=== PATIENT | female | born 1995 | race Caucasian/White ===

== ENCOUNTER → 2021-05-27 14:05 | Outpatient (CLI) | payer SELFPAY | PROVIDERS: PCP Family Medicine; Visit Provider Obstetrics & Gynecology | DX: O20.0 Threatened abortion (principal); Z3A.00 Weeks of gestation of pregnancy not specified ==

== ENCOUNTER → 2021-05-29 14:09 | Outpatient (CLI) | payer SELFPAY ==
[2021-05-27 17:07] LABS: hCG Titer Quant., Serum 11868 mIU/mL (1-3)
[2021-05-29 16:15] LABS: hCG Titer Quant., Serum 19084 mIU/mL (1-3)
== END ==
PROVIDERS: PCP Family Medicine; Visit Provider Obstetrics & Gynecology
DX: O20.0 Threatened abortion (principal); Z3A.00 Weeks of gestation of pregnancy not specified
CPT/HCPCS: 36415; 84702

== ENCOUNTER → 2021-07-15 10:30 | Outpatient (CLI) | payer OTHER, SELFPAY ==
[2021-07-15 11:22] LABS: Absolute Lymphocyte Count 2.02 X10^3/uL (0.83-4.51); Absolute Neutrophil Count 5.4 X10^3/uL (2.0-7.7); Basophil# 0.03 X10^3/uL; Basophil% 0.4 % (0-1); Eosinophil# 0.06 X10^3/uL; Eosinophils% 0.7 % (0-5); Hematocrit 39.8 % (37-47); Hemoglobin 13.1 g/dL (12.0-15.0); Lymphocyte # 2.02 X10^3/ul (0.83-4.51); Lymphocyte % 24.5 % (19-41); Mean Corp Hgb Conc 32.9 g/dL (32-36); Mean Corpuscular Hgb 30.7 pg (27.0-32.0); Mean Corpuscular Volume 93.2 fL (81-99); Mean Platelet Vol. 9.3 fl (6.2-12.0); Monocyte# 0.68 X10^3/uL; Monocyte% 8.2 % (0-10); NRBC Flagged by Analyzer 0 % (0-5); Neutrophil # 5.44 X10^3/uL (2.7-7.7); Neutrophil % 65.8 % (47-70); Platelet Count 188 K/mm3 (150-450); RBC Distribution Width CV 12.9 % (11.6-14.6); RBC Distribution Width SD 43.8 fl (35.1-43.9); Red Blood Count 4.27 M/mm3 (4.2-5.4); White Blood Count 8.3 K/mm3 (4.4-11.0)
[2021-07-15 11:40] LABS: Color, Urine Yellow (Yellow); Glucose, Dipstick Normal (Normal); Ketone-Dipstick Negative (Negative); Leukocyte Esterase-Dipstick 500 /ul (Negative); Nitrite-Dipstick Negative (Negative); Occult Blood-Urine 150 /ul (Negative); Protein-Dipstick Negative (Negative); Specific Gravity, Urine 1.015 (1.002-1.030); Thyroid Stim Hormone (TSH) 1.13 uIU/mL (0.358-3.74); Urine Bilirubin Dipstick Negative (Negative); Urine Clarity Clear (Clear); Urine Urobilinogen Normal (Normal)
[2021-07-15 12:10] LABS: HIV - WCH Non-Reactive (Nonreactive); Hepatitis B Surface Antigen Non-Reactive (Nonreactive); Hepatitis C Antibody Non-Reactive (Nonreactive); Rubella IgG Reactive (Nonreactive); Syphilis Antibodies Non-reactive
[2021-07-16 22:07] LABS: Chlamydia By Nucleic Acid AMP Negative (Negative)
[2021-07-17 15:53] LABS: Gonococcus By Nucleic Acid AMP Negative (Negative)
[2021-07-18 15:35] LABS: HPV Reflexed? NOT INDICATED
== END ==
PROVIDERS: PCP Family Medicine; Visit Provider Obstetrics & Gynecology
DX: Z34.81 Encounter for supervision of other normal pregnancy, first trimester (principal); Z12.4 Encounter for screening for malignant neoplasm of cervix; Z11.3 Encounter for screening for infections with a predominantly sexual mode of transmission
CPT/HCPCS: 36415; 81002; 84443; 85025; 86703; 86762; 86780; 86803; 87086; 87088; 87340; 87491; 87591; 88175; G0145

== ENCOUNTER 2021-11-05 10:08 | Outpatient (CLI) | payer OTHER, SELFPAY ==
[2021-11-05 11:49] LABS: Hematocrit 35.2 % (37-47); Mean Corp Hgb Conc 34.1 g/dL (32-36); Mean Corpuscular Hgb 32.9 pg (27.0-32.0); Mean Corpuscular Volume 96.4 fL (81-99); Mean Platelet Vol. 9.4 fl (6.2-12.0); Platelet Count 177 K/mm3 (150-450); RBC Distribution Width CV 13.2 % (11.6-14.6); Red Blood Count 3.65 M/mm3 (4.2-5.4); White Blood Count 11.4 K/mm3 (4.4-11.0)
[2021-11-05 11:53] LABS: Glucose Challenge Gest 1H 50g 72 mg/dL (70-140)
== END 2021-11-05 23:59 | disposition home or self-care (01) ==
PROVIDERS: PCP Family Medicine; Visit Provider Obstetrics & Gynecology
DX: Z34.83 Encounter for supervision of other normal pregnancy, third trimester (principal)
CPT/HCPCS: 36415; 82950; 85027

== ENCOUNTER 2021-12-31 15:25 | Outpatient (CLI) | payer OTHER, SELFPAY | END 2021-12-31 23:59 | disposition home or self-care (01) | LOC: LABSPEC 15:27 | PROVIDERS: PCP Family Medicine; Visit Provider Obstetrics & Gynecology | DX: Z36.85 Encounter for antenatal screening for Streptococcus B (principal) | CPT/HCPCS: 87081 ==

== ENCOUNTER 2022-01-20 11:25 | Inpatient (IN) | payer SELFPAY, OTHER ==
[2022-01-20] VITALS (40 sets, daily range): BP systolic 105–121; BP diastolic 57–74; PULSE 85–111; TEMP 36.2–37.3; O2SAT 95–100; BMI 26.6
[2022-01-20] MEDS: Lactated Ringers 1,000 ML 200 ML IV (12:57)
[2022-01-20 13:03] LABS: Absolute Lymphocyte Count 1.36 X10^3/uL (0.83-4.51); Basophil# 0.03 X10^3/uL; Basophil% 0.2 % (0-1); Eosinophil# 0.02 X10^3/uL; Eosinophils% 0.2 % (0-5); Hematocrit 41.2 % (37-47); Hemoglobin 14.1 g/dL (12.0-15.0); Lymphocyte # 1.36 X10^3/ul (0.83-4.51); Lymphocyte % 10.3 % (19-41); Mean Corp Hgb Conc 34.2 g/dL (32-36); Mean Corpuscular Volume 96.5 fL (81-99); Mean Platelet Vol. 9.7 fl (6.2-12.0); Monocyte# 0.67 X10^3/uL; Monocyte% 5.1 % (0-10); NRBC Flagged by Analyzer 0 % (0-5); Neutrophil # 11.02 X10^3/uL (2.7-7.7); Neutrophil % 83.5 % (47-70); Platelet Count 165 K/mm3 (150-450); RBC Distribution Width CV 13.1 % (11.6-14.6); RBC Distribution Width SD 46.5 fl (35.1-43.9); Red Blood Count 4.27 M/mm3 (4.2-5.4); White Blood Count 13.2 K/mm3 (4.4-11.0)
--- NOTE | 2022-01-20 17:50 | PCM.HP.OB ---
HPI - General General Date of Admission: 01/20/22 HPI Narrative HAROON GALINDO, is a 26 F who presents in active labor. She was seen in the office and sent to labor and delivery for cervical exam 5cm/80/-2. Maternal Data Information BRENDAN Calculator Estimated Delivery Date Method Current WG Current Estimate 01/28/22 LMP (Certain) 38w 6d Other Estimates 01/27/22 Ultrasound #1 39w 0d PFSH PFSH Medical History (Updated 01/20/22 @ 17:[address] Kizzy Staley MD) Herpes zoster Late care affecting in first trimester Home Medications vit-iron fum-folic ac [ Fa] 1 tab PO DAILY 01/20/22 [History Last Taken Unknown] Allergy/AdvReac Type Severity Reaction Status Date / Time No Known Allergies Allergy Verified 02/13/17 21:46 Surgical History (Updated 01/20/22 @ 17:[address] Kizzy Staley MD) History of surgical procedure on mouth Social History Smoking Status: Never smoker History 1 Elective abortions Hx Para 0 Spontaneous abortions Hx # Term Pregnancies Ectopic pregnancies Hx # Pregnancies Multiple births # of living children NST FHR Rate Baby A Baseline: 145 Variability:: Moderate Accelerations:: 15 x 15 Decelerations:: None NST Reactive:: Yes FHR Category:: Category I Uterine Activity:: 10/23 Vital Signs Vital Signs Vital Signs: 01/20/22 12:11 01/20/22 12:12 01/20/22 13:24 Temperature 97.8 F Temperature Source Temporal Pulse Rate 103 H 85 Blood Pressure 114/68 121/74 H BP Systolic 114 121 BP Diastolic 68 74 Pulse Ox 96 01/20/22 14:35 01/20/22 14:45 01/20/22 15:39 Temperature 98.4 F Temperature Source Temporal Pulse Rate 98 98 111 H Blood Pressure 119/71 119/71 115/72 BP Systolic 119 119 115 BP Diastolic 71 71 72 Pulse Ox 98 01/20/22 15:40 01/20/22 16:31 01/20/22 17:24 Temperature 98.8 F 99.2 F H 98.2 F Temperature Source Temporal Temporal Temporal Pulse Rate 106 H 91 Blood Pressure 105/58 L 111/66 BP Systolic 105 111 BP Diastolic 58 66 Pulse Ox 98 97 97 01/20/22 17:25 Temperature Temperature Source Pulse Rate 96 Blood Pressure BP Systolic BP Diastolic Pulse Ox 95 Weight Weight: 74.9 kg Body Mass Index (BMI) 26.6 Physical Exam Const alert, oriented x3 and no apparent distress HEENT normocephalic Resp normal respiratory effort, normal air movement and clear to auscultation bilaterally Cardio regular rate and regular rhythm GI normal to inspection, nondistended, normoactive bowel sounds, soft to palpation, non-tender and non-distended Inspection: gravid Narrative: /-1, soft, BBOW Labs Labs Labs: Blood Type A POSITIVE Antibody Screen NEGATIVE Hct 41.2 % (37-47) Hgb 14.1 g/dL (12.0-15.0) Syphilis Total Ab Non-reactive Rubella IgG Antibody Reactive (Nonreactive) Hep Bs Antigen Non-Reactive (Nonreactive) Chlamydia DNA (OPAL) Negative (Negative) Neisseria gonorrhoeae DNA (OPAL) Negative (Negative) HIV 1&2 Antibody Non-Reactive (Nonreactive) Glucose 1 Hr 50 gm 72 mg/dL (70-140) Assessment & Plan (1) 38 weeks gestation of : PLAN: Active labor Recent exam unchanged x 2. Amniotomy performed with clear fluid Intermittent auscultation
[2022-01-20] MEDS: Dextrose 5%-Lactated Ringers 1,000 ML 200 ML IV (19:09)
--- NOTE | 2022-01-20 20:26 | PCM.PN.OB ---
Subjective Subjective Reports pressures in her bottom with urge to push. Objective Data Objective Data Vital Signs: Vital Signs Temp Pulse BP Pulse Ox 98.2 F 90 105/61 99 01/20/22 17:24 01/20/22 19:31 01/20/22 19:31 01/20/22 19:30 Weight: 74.9 kg Body Mass Index (BMI) 26.6 Intake & Output: Intake and Output for Last 24 Hours 01/18/22 01/19/22 01/20/22 23:59 23:59 23:59 Intake Total 853.33 / 853.33 Balance 853.33 / 853.33 Lab / Micro Data Result Diagrams: 01/20/22 12:30 Labs: Laboratory Results - last 24 hr 01/20/22 12:30: WBC 13.2 H, RBC 4.27, Hgb 14.1, Hct 41.2, MCV 96.5, MCH 33.0 H, MCHC 34.2, RDW Std Deviation 46.5 H, RDW Coeff of Alexsandra 13.1, Plt Count 165, MPV 9.7, Immature Gran % (Auto) 0.700, Neut % (Auto) 83.5 H, Lymph % (Auto) 10.3 L, [place] % (Auto) 5.1, Eos % (Auto) 0.2, Baso % (Auto) 0.2, Absolute Neuts (auto) 11.0 H, Absolute Lymphs (auto) 1.36, Nucleated RBC % 0 01/20/22 12:30: Blood Type A POSITIVE, Antibody Screen NEGATIVE Micro: Microbiology 01/20/22 12:45 Nasal Secretion SARS-CoV-2 Antigen (Rapid) - Final Physical Exam Narrative GEN - NAD, AAO x 3 FHR 140, moderate variability, + accelerations, no decelerations TOCO 5/10 min SVE anterior lip, 0 station, LOP Assessment & Plan (1) 38 weeks gestation of :
[2022-01-20] MEDS: Oxytocin 30 units/NS 500 ml 30 UNITS/500 ML IV.SOLN 334 UNITS IV (21:49)
--- NOTE | 2022-01-20 22:46 | EX.PCM.OBRPT ---
Assessment & Plan (1) 38 weeks gestation of : (2) (spontaneous vaginal delivery): Maternal Data Information BRENDAN Calculator Estimated Delivery Date Method Current WG Current Estimate 01/28/22 LMP (Certain) 38w 6d Other Estimates 01/27/22 Ultrasound #1 39w 0d Vaginal Delivery Maternal Presentation Maternal Presentation: Active Labor Operative Information Date of Procedure: 01/20/22 Pre-Operative Diagnosis: 1. 38 6/7 weeks gestation 2. Labor Post-Operative Diagnosis: 1. 38 6/7 weeks gestation 2. Labor 3. Third degree perineal laceration Surgery / Procedure Performed: Spontaneous Vaginal Delivery Type of Anesthesia: None Estimated Blood Loss: 400 ml Time of Delivery: 21:42 Findings Description of Procedure: Patient was FD/+ 3 on my arrival. She pushed over approximately 20 minutes to deliver a vigorous female infant. The was handed to nursery personnel and mouth and nares bulb suctioned, then placed on the maternal abdomen. The cord was doubly clamped and cut. The placenta delivered spontaneously and appeared intact on inspection. A third degree perineal laceration was repaired with 2-0 chromic using a side to side clockface pattern at the external anal sphincter and the remaining second degree laceration was repaired with 3-0 Vicryl Rapide with good hemostasis. The fundus was firm at 1 FW below the umbilicus. Sponge and needle counts were correct x 2. Presentation: Vertex Amniotic Fluid Description: Clear Placenta Disposition: [facility] Cord Vessel Description: 3 Vessels Cord Entanglement: None Infant A Gender: Female (1 minute): 8 (5 minute): 9 Delayed Cord Clamping: Yes Post Vaginal Delivery Medications Given After Delivery: IV Pitocin Episiotomy Description: None Laceration: Midline, Perineal Extension/lac, Vaginal Extension/lac and 3rd degree Complication Complications: None
[2022-01-20] MEDS: Ibuprofen 600 MG Tablet PO (23:11)
[2022-01-21] VITALS (8 sets, daily range): BP systolic 101–127; BP diastolic 56–63; PULSE 98–112; RESP 15–18; TEMP 36.6–36.8; O2SAT 96–98
[2022-01-21] MEDS: 0.9% Saline Lock 10 ML Syringe IV (00:32)
--- NOTE | 2022-01-21 06:00 | NURSING ---
small large marble sized clot expelled when pt up to bathroom at this time
--- NOTE | 2022-01-21 07:20 | NURSING ---
report given to Lea Gonzáles RN who is assuming care of pt at this time
--- NOTE | 2022-01-21 08:57 | PN.OBGYN_ITS ---
Subjective Subjective Feels well. Had discomfort with urination, otherwise no voiding difficulties. She has been OOB, ambulating without difficulty. Denies heavy lochia. Pain is minimal. She is . Objective Data Objective Data Vital Signs: Vital Signs Temp Pulse Resp BP Pulse Ox 98.3 F 101 H 15 104/57 L 96 01/21/22 08:36 01/21/22 08:39 01/21/22 08:36 01/21/22 08:39 01/21/22 08:36 Oxygen Delivery Method Room Air Weight: 74.9 kg Body Mass Index (BMI) 26.6 Intake & Output: Intake and Output for Last 24 Hours 01/19/22 01/20/22 01/21/22 23:59 23:59 23:59 Intake Total 1530.33 / 1530.33 333 / 333 Output Total 800 / 800 Balance 1530.33 / 1530.33 -467 / -467 Lab / Micro Data Result Diagrams: 01/20/22 12:30 Labs: Laboratory Results - last 24 hr 01/20/22 12:30: WBC 13.2 H, RBC 4.27, Hgb 14.1, Hct 41.2, MCV 96.5, MCH 33.0 H, MCHC 34.2, RDW Std Deviation 46.5 H, RDW Coeff of Alexsandra 13.1, Plt Count 165, MPV 9.7, Immature Gran % (Auto) 0.700, Neut % (Auto) 83.5 H, Lymph % (Auto) 10.3 L, [place] % (Auto) 5.1, Eos % (Auto) 0.2, Baso % (Auto) 0.2, Absolute Neuts (auto) 11.0 H, Absolute Lymphs (auto) 1.36, Nucleated RBC % 0 01/20/22 12:30: Blood Type A POSITIVE, Antibody Screen NEGATIVE Micro: Microbiology 01/20/22 12:45 Nasal Secretion SARS-CoV-2 Antigen (Rapid) - Final Physical Exam Const alert, oriented x3 and no apparent distress Resp normal respiratory effort and normal air movement Cardio regular rate, regular rhythm, S1 normal heart sound and S2 normal heart sound Narrative: lochia moderate Uterus Palpation: uterus fundus firm and other OB fundus nontender Extremity no calf tenderness Neuro oriented x3 Assessment & Plan (1) (spontaneous vaginal delivery): PLAN: PPD#1 s/p A positive Routine care Plan for d/c home tomorrow (2) 38 weeks gestation of :
[2022-01-21] MEDS: Ibuprofen 600 MG Tablet PO ×2 (08:58→20:14)
[2022-01-21] MEDS: Senna/Docusate Sodium 1 Tablet PO (15:22)
[2022-01-21] MEDS: Acetaminophen 500 MG Tablet 1000 MG PO (15:22)
[2022-01-22 01:27] VITALS: BP 102/63; PULSE 92; PULSE 93; RESP 16; O2SAT 97
--- NOTE | 2022-01-22 07:25 | NURSING ---
report given to Anne Marie Velez RN who is assuming care of pt at this time
--- NOTE | 2022-01-22 08:12 | PCM.DC.BLA ---
Discharge Summary Date of Admission: 01/20/22 Date of Discharge: 01/22/22 Summary: Patient arrived on 01/20/2022 in active labor. Subsequently vaginal delivery 01/20/2022. Routine care. Discharge home on 01/22/2022 Meaningful Use Info Meaningful Use Diagnoses (Choose all that apply): None applicable Discharge Plan Admission Admit Date/Time: 01/20/22 11:25 Primary Reason for Your Visit: Labor Attending Provider: Kizzy Fields Primary Care Provider: Ozzie Worthy Instructions Additional Instructions / Restrictions: Okay to shower. No tub baths for 2 weeks. Weightbearing as tolerated. Regular diet. No intercourse for 4 to 6 weeks. Call if chest pain, shortness of breath, nausea vomiting, right upper quadrant pain. Follow-up 2-week telehealth visit, 4 to 6 weeks Discharge Orders/Prescriptions Prescriptions: No Action Fa 60 mg iron-1 mg Tablet 1 tab PO DAILY RF: 0 Referrals / Follow Up: Ozzie Worthy DO [Primary Care Provider] - Disposition Discharge Orders: Discharge Patient (Routine); Ordered 01/22/22 Ordered By: Dr. Zachary Wang
--- NOTE | 2022-01-22 08:13 | PN.OBGYN_ITS ---
Subjective Subjective No overnight complaints Objective Data Objective Data Vital Signs: Vital Signs Temp Pulse Resp BP Pulse Ox 98.0 F 92 16 102/63 97 01/21/22 20:17 01/22/22 01:27 01/22/22 01:27 01/22/22 01:27 01/22/22 01:27 Oxygen Delivery Method Room Air Weight: 165 lb 2.02 oz Body Mass Index (BMI) 26.6 Intake & Output: Intake and Output for Last 24 Hours 01/20/22 01/21/22 01/22/22 23:59 23:59 23:59 Intake Total 1530.33 / 1530.33 333 / 333 Output Total 800 / 800 Balance 1530.33 / 1530.33 -467 / -467 Lab / Micro Data Result Diagrams: 01/20/22 12:30 Micro: Microbiology 01/20/22 12:45 Nasal Secretion SARS-CoV-2 Antigen (Rapid) - Final Physical Exam Const alert, oriented x3, no apparent distress, average body habitus, healthy appearing and well nourished HEENT normocephalic Head and Scalp: atraumatic Face and Sinus: normal facial exam Neck full ROM GI GI Narrative: Soft, nontender, uterus firm and below umbilicus Extremity normal to inspection, full ROM and no clubbing, cyanosis or edema Psych mental status grossly normal, affect normal, speech normal and activity/motor behavior normal Assessment & Plan (1) (spontaneous vaginal delivery): PLAN: day 2. Breast-feeding. Okay to discharge home today if okay with child and adolescent therapist
[2022-01-22 09:00] VITALS: BP 101/65; PULSE 90; RESP 16; TEMP 36.7
[2022-01-22 09:16] VITALS: BP 101/65; PULSE 90
[2022-01-22] MEDS: Ibuprofen 600 MG Tablet PO (09:17)
== END 2022-01-22 11:45 | disposition home or self-care (01) | DRG 768 ==
PROVIDERS: Admitting Provider Obstetrics & Gynecology; PCP Family Medicine; Visit Provider Obstetrics & Gynecology
DX: O70.20 Third degree perineal laceration during delivery, unspecified (principal); Z37.0 Single live birth; Z3A.38 38 weeks gestation of pregnancy
CPT/HCPCS: 59025; 59050; 85025; 86850; 86900; 86901; 87426; 99218; J7120; A4216; G0378

== ENCOUNTER 2023-05-17 14:31 | Emergency (ER) | payer OTHER, SELFPAY ==
[2023-05-17 14:34] VITALS: BP 121/87; PULSE 100; RESP 18; TEMP 36.2; O2SAT 99; BMI 20.7
--- NOTE | 2023-05-17 14:46 | CT_ITS ---
STUDY: CT ABDOMEN AND PELVIS WITH CONTRAST REASON FOR EXAM: Female, 27 years old. abd pain, fever -- IV PO Contrast RADIATION DOSAGE (If Supplied By Facility): CTDIvol = ( 18.99 ) mGy, DLP = ( 412.42 ) mGycm TECHNIQUE: Transaxial images were obtained from the dome of the diaphragm to the symphysis pubis with oral contrast. IV 100mL Isovue-370 was administered. Sagittal and coronal images were reconstructed. Individualized dose optimization techniques were used for this CT. COMPARISON: None. FINDINGS: The visualized lung bases are unremarkable. The visualized portions of the heart are within normal limits. Normal liver. Normal gallbladder and extrahepatic biliary system. Normal spleen. Normal pancreas. Normal bilateral adrenal glands. Normal right kidney. Normal left kidney. Normal visualized stomach. Normal small intestine. Normal colon. There is non-visualization of the appendix. Normal abdominal aorta. Normal inferior vena cava. Normal retroperitoneum. Normal urinary bladder. Normal abdominal wall. Normal osseous structures. CT/Abdomen/Pelvis WITH Contrast IMPRESSION: Normal enhanced CT of the abdomen and pelvis. Electronically Signed: Miguel Grider MD at 17:58 EDT ,
--- NOTE | 2023-05-17 14:47 | EDS_ITS ---
HPI History of Present Illness Chief Complaint: Abd Pain Informant: patient Onset/Context/Timing Onset: Yesterday Context: Gradual Onset Timing: Waxes and wanes Current Severity: Mild Maximum Severity: Moderate Narrative Narrative: Patient present secondary to abdominal pain. She states she had pain rated 6-8 overnight and a bandlike sensation across her lower abdomen. She developed low- grade fever up to 100.7. She states the pain is more located around her umbilicus today and is more mild. She has not run a fever during the day today. She has decreased output and has not had anything to eat. She has been drinking. She reports some abdominal pain when she urinates but no actual dysuria. She does report some cough and congestion that feels like it is moving down into her lungs. Her is recovering from flu. [facility] Medical History Herpes zoster Late care affecting in first trimester Home Medications vit with calcium-iron fum-folic acid 60 mg iron-1 mg tablet 1 tab PO DAILY 01/20/22 [History Last Taken Unknown] Allergy/AdvReac Type Severity Reaction Status Date / Time No Known Allergies Allergy Verified 05/17/23 14:34 Surgical History History of surgical procedure on mouth Social History Smoking Status: Never smoker ROS ROS ED Constitutional Constitutional ED: Reports fever(s); Denies chills Eyes Eyes: Denies change in vision or discharge from eye(s) ENT ENT ED: Reports other Details: Congestion ; Denies discharge from eye(s), rhinorrhea or sore throat Cardiovascular Cardiovascular: Denies chest pain or palpitations Respiratory/Chest Respiratory/Chest: Reports cough; Denies dyspnea Gastrointestinal Gastrointestinal: Reports abdominal pain; Denies diarrhea, nausea or vomiting Genitourinary Genitourinary ED: Denies dysuria Musculoskeletal Musculoskeletal: Denies back pain or extremity pain Integumentary Denies Abrasions or rash Neurologic Neurologic: Denies headache(s) or weakness Allergic/Immunologic Allergic/Immunologic ED: Denies lip swelling or urticaria EXAM Physical Exam Const Vital Signs: 05/17/23 14:34 Temperature 97.2 F L Temperature Source Temporal Pulse Rate 100 Respiratory Rate 18 Blood Pressure 121/87 H Blood Pressure Mean 98 Pulse Ox 99 Oxygen Delivery Method Room Air Positive well nourished and well developed General Appearance ED: well developed HEENT Reports normocephalic and head/scalp atraumatic Eyes PERRL and EOMs intact bilaterally Neck supple Chest Wall inspection of chest normal and palpation of chest normal Resp normal respiratory effort and clear to auscultation bilaterally Cardio regular rate and regular rhythm GI GI Narrative: Minimal periumbilical tenderness at this time. Hypoactive bowel sounds. No guarding or rebound. Palpation: soft Extremity normal to inspection Neuro oriented x3 and no sensory deficits noted Sensorium / Orientation: alert Motor Exam: strength 5/5 throughout Psych mental status grossly normal Skin no rashes or lesions noted MDM MDM MDM Narrative Medical decision making narrative: IV line established. Patient given IV fluids. Labwork obtained to evaluate for leukocytosis, anemia, and electrolyte derangement. Urinalysis obtained to evaluate for infection/hematuria. CT scan of the abdomen pelvis obtained with contrast to evaluate for possible appendicitis. Lab Data Attestation: I reviewed the patient's lab results. Labs: Laboratory Results - last 24 hr 05/17/23 05/17/23 14:55 15:25 WBC 7.1 RBC 4.37 Hgb 13.7 Hct 39.8 MCV 91.1 MCH 31.4 MCHC 34.4 RDW Std Deviation 40.6 RDW Coeff of Alexsandra 12.1 Plt Count 233 MPV 9.1 Immature Gran % (Auto) 0.300 Neut % (Auto) 59.6 Lymph % (Auto) 28.5 [place] % (Auto) 10.9 H Eos % (Auto) 0.4 Baso % (Auto) 0.3 Absolute Neuts (auto) 4.2 Absolute Lymphs (auto) 2.01 Nucleated RBC % 0 Sodium 136 Potassium 3.5 Chloride 103 Carbon Dioxide 28.0 Anion Gap 5 BUN 13 Creatinine 0.89 Estim Creat Clear Calc 88.89 Est GFR (MDRD) Af Amer 97 Est GFR (MDRD) Non-Af 80 BUN/Creatinine Ratio 14.6 Glucose 94 Calcium 8.9 Total Bilirubin 0.70 Direct Bilirubin 0.17 AST 13 L ALT 20 Alkaline Phosphatase 67 Total Protein 7.8 Albumin 3.6 Globulin 4.2 Lipase 27 Serum , Qual NEGATIVE Urine Color Yellow Urine Clarity Clear Urine pH 6.5 Ur Specific [place] 1.015 Urine Protein Negative Urine Glucose (UA) Normal Urine Ketones 15 H Urine Occult Blood Negative Urine Nitrite Negative Urine Bilirubin Negative Urine Urobilinogen Normal Ur Leukocyte Esterase 100 H Urine RBC 0 SEEN Urine WBC 0-5 SEEN Ur Squamous Epith Cells 0-5 SEEN Urine Bacteria 1+ Urine Mucus 0 SEEN Radiography Chest X-Ray - ED: 1 View, Read by ED Physician, Normal, Heart, Lungs and Mediastinum Diagnostic Testing: Clinical Impression(s) from Imaging Studies Abdomen/Pelvis CT 05/17/23 14:46 IMPRESSION: Normal enhanced CT of the abdomen and pelvis. Electronically Signed: Miguel Grider MD at 17:58 EDT Reading Location ID and State: [employer] [facility] [employer] , Service support , Chest X-Ray 05/17/23 15:32 IMPRESSION: Normal x-ray examination of the chest. Electronically Signed: Miguel Grider MD at 16:13 EDT Reading Location ID and State: [employer] [facility] [employer] , Service support , Treatment and Re-Evaluation :: CBC was normal white count 7.1 with normal differential. Chemistry studies are unremarkable. LFTs and lipase normal. test negative. Urinalysis reveals no overt sign of infection. Portable chest x-ray per my interpretation reveals no focal infiltrate. Radiology interpretation is reviewed and agrees. CT scan of the abdomen and pelvis is read by radiology as normal. Test results are discussed with the patient. Patient did asked that I look at a rash that she has had for the past 4 years. She has irritation and itching along the left perineum in her panty line. There appears to be an area of contact dermatitis. We discussed using hydrocortisone cream or using a panty liner wrapped around the edge of her underwear to prevent any contact with the elastic. I will also give her the phone number for dermatology for follow-up if this does not improve. Discharge Plan Triage Chief Complaint: Abd Pain ED Provider: Nissa Rosen Dx/Rx/DC Orders Clinical Impression: Abdominal pain Instructions: ED Abdominal Pain Unkn Cause Fem Prescriptions: No Action Fa 60 mg iron-1 mg Tablet 1 tab PO DAILY Primary Care Provider: Ozzie Worthy Referrals: Gregoria Saez MD [Non-Staff] - As Needed Ozzie Worthy DO [Primary Care Provider] - As Needed Disposition Disposition: Home, Self Care
[2023-05-17 15:17] LABS: Absolute Lymphocyte Count 2.01 X10^3/uL (0.83-4.51); Absolute Neutrophil Count 4.2 X10^3/uL (2.0-7.7); Basophil# 0.02 X10^3/uL; Basophil% 0.3 % (0-1); Eosinophil# 0.03 X10^3/uL; Eosinophils% 0.4 % (0-5); Hematocrit 39.8 % (37-47); Hemoglobin 13.7 g/dL (12.0-15.0); Lymphocyte # 2.01 X10^3/ul (0.83-4.51); Lymphocyte % 28.5 % (19-41); Mean Corp Hgb Conc 34.4 g/dL (32-36); Mean Corpuscular Hgb 31.4 pg (27.0-32.0); Mean Corpuscular Volume 91.1 fL (81-99); Mean Platelet Vol. 9.1 fl (6.2-12.0); Monocyte# 0.77 X10^3/uL; Monocyte% 10.9 % (0-10); NRBC Flagged by Analyzer 0 % (0-5); Neutrophil % 59.6 % (47-70); Platelet Count 233 K/mm3 (150-450); RBC Distribution Width CV 12.1 % (11.6-14.6); RBC Distribution Width SD 40.6 fl (35.1-43.9); Red Blood Count 4.37 M/mm3 (4.2-5.4); White Blood Count 7.1 K/mm3 (4.4-11.0)
[2023-05-17] MEDS: 0.9% Normal Saline 1,000 ML 150 ML IV (15:26)
--- NOTE | 2023-05-17 15:32 | RAD_ITS ---
STUDY: X-RAY CHEST REASON FOR EXAM: Female, 27 years old. cough TECHNIQUE: Single AP portable view of the chest. COMPARISON: None. FINDINGS: The lungs are clear and expanded. There is no demonstrated pleural abnormality. Normal size heart. Normal mediastinum and esteban. Normal visualized pulmonary arteries. Normal visualized aortic arch and descending thoracic aorta. Normal visualized thoracic spine. Normal visualized ribs, clavicles, and shoulders. There is no demonstrated abnormality of the visualized soft tissue structures of the upper abdomen. RAD/Chest 1 View (Portable) IMPRESSION: Normal x-ray examination of the chest. Electronically Signed: Miguel Grider MD at 16:13 EDT ,
[2023-05-17 15:33] LABS: Mucous, Urine 0 SEEN /hpf (<or=2+); Red Blood Cells-Urine 0 SEEN /hpf (0-5)
[2023-05-17 15:36] LABS: Internal QC Validated? YES +Cl - CLEAR BKGD; Pregnancy, Serum, hCG Quali. NEGATIVE Negative; Record Kit Lot#, Serum Preg. 667200
[2023-05-17 15:39] LABS: AST(SGOT) 13 U/L (15-37); Alanine Aminotransfer ALT/SGPT 20 U/L (13-56); Albumin, Serum 3.6 g/dL (3.2-5.0); Alkaline Phosphatase 67 U/L (45-117); Anion Gap 5 (5-15); BUN 13 mg/dL (7-18); BUN/Creat Ratio 14.6 RATIO (10-20); Bilirubin, Direct 0.17 mg/dL (0.00-0.30); Calcium,Total 8.9 mg/dL (8.5-10.1); Chloride 103 mmol/L (98-107); Creatinine, Serum 0.89 mg/dL (0.55-1.02); EST Glomerular Filtration Rate 80 mL/min (>60); Est Glom Filt Rate - Afr Amer 97 mL/min (>60); Estimated Creatinine Clearance 88.89 ml/min; Globulin 4.2 g/dL (2.2-4.2); Glucose 94 mg/dL (74-106); Lipase 27 U/L (13-75); Potassium 3.5 mmol/L (3.5-5.1); Protein, Total 7.8 g/dL (6.4-8.2); Sodium Level 136 mmol/L (136-145)
[2023-05-17 15:42] LABS: Color, Urine Yellow (Yellow); Glucose, Dipstick Normal (Normal); Ketone-Dipstick 15 mg/dl (Negative); Leukocyte Esterase-Dipstick 100 /ul (Negative); Nitrite-Dipstick Negative (Negative); Occult Blood-Urine Negative /ul (Negative); Protein-Dipstick Negative (Negative); Specific Gravity, Urine 1.015 (1.002-1.030); Urine Bilirubin Dipstick Negative (Negative); Urine Clarity Clear (Clear); Urine Urobilinogen Normal (Normal); Urine pH 6.5 (5.0 - 8.0)
[2023-05-17 15:57] LABS: Bacteria 1+ /hpf (None Seen); Squamous Epithelial Cells - UA 0-5 SEEN /hpf (5-10); White Blood Cells 0-5 SEEN /hpf (0-5)
[2023-05-17 18:15] VITALS: BP 120/57; PULSE 62; RESP 14; O2SAT 100
== END 2023-05-17 18:16 | disposition home or self-care (01) ==
PROVIDERS: Emergency Provider Emergency Medicine; PCP Family Medicine; Visit Provider Emergency Medicine
DX: R10.9 Unspecified abdominal pain (principal)
CPT/HCPCS: 71045; 74177; 80048; 80076; 81001; 83690; 84703; 85025; 87428; 96360; 96361; 99283; Q9967

== ENCOUNTER 2024-09-11 12:13 | Emergency (ER) | payer SELFPAY ==
[2024-09-11] VITALS (11 sets, daily range): BP systolic 52–111; BP diastolic 42–79; PULSE 73–118; RESP 12–25; TEMP 36; O2SAT 99–100; BMI 22.7
[2024-09-11 13:24] LABS: Absolute Lymphocyte Count 3.08 X10^3/uL (0.83-4.51); Absolute Neutrophil Count 13.9 X10^3/uL (2.0-7.7); Basophil# 0.05 X10^3/uL; Basophil% 0.3 % (0-1); Eosinophil# 0.04 X10^3/uL; Eosinophils% 0.2 % (0-5); Hematocrit 35.6 % (37-47); Hemoglobin 12.3 g/dL (12.0-15.0); Lymphocyte # 3.08 X10^3/ul (0.83-4.51); Mean Corp Hgb Conc 34.6 g/dL (32-36); Mean Corpuscular Hgb 31.1 pg (27.0-32.0); Mean Corpuscular Volume 90.1 fL (81-99); Mean Platelet Vol. 9.3 fl (6.2-12.0); Monocyte# 0.96 X10^3/uL; Monocyte% 5.3 % (0-10); NRBC Flagged by Analyzer 0 % (0-5); Neutrophil # 13.86 X10^3/uL (2.7-7.7); Neutrophil % 76.7 % (47-70); Platelet Count 257 K/mm3 (150-450); RBC Distribution Width CV 12.9 % (11.6-14.6); RBC Distribution Width SD 42.3 fl (35.1-43.9); Red Blood Count 3.95 M/mm3 (4.2-5.4); White Blood Count 18.1 K/mm3 (4.4-11.0)
--- NOTE | 2024-09-11 13:44 | EDS_ITS ---
HPI HPI - Female History of Present Illness Chief Complaint: Vag Bleeding Informant: patient and spouse/S.O. Narrative Narrative: 28-year-old female G3, P1 at approximately 16 weeks states that this morning she believes she passed a fetus. She states that this she was diagnosed with a subchorionic bleed and it appeared that the cord was wrapped around the fetuses right arm. She states that yesterday she developed spotting and this morning she developed heavier bleeding and cramping. Around 0915 hrs. she believes she passed the fetus. She states she believes she passed the placenta. She notes continued cramping lightheadedness. She had syncopal episode at home on the commode. She states that she was seen [facility] for this . Previously delivered 2 years [address] with [address] Sly Staley. She had a subsequent miscarriage earlier this spring at 7 weeks. She is unsure of her blood type. [facility] Medical History Herpes zoster Late care affecting in first trimester Home Medications ?Medication ?Instructions ?Recorded ?Last Taken ?Type vit with calcium-iron 1 tab PO DAILY 01/20/22 Unknown History fum-folic acid 60 mg iron-1 mg tablet Allergy/AdvReac Type Severity Reaction Status Date / Time No Known Allergies Allergy Verified 09/11/24 12:15 Surgical History History of surgical procedure on mouth Social History Smoking Status: Never smoker ROS ROS ED Constitutional Constitutional ED: Reports other Details: Lightheadedness ; Denies chills, fever(s) or weight loss Eyes Eyes: Denies change in vision or diplopia ENT ENT ED: Denies ear pain, rhinorrhea or sore throat Cardiovascular Cardiovascular: Reports other Details: Syncope ; Denies chest pain, orthopnea, palpitations or racing heartbeat Respiratory/Chest Respiratory/Chest: Denies cough, dyspnea or orthopnea Gastrointestinal Gastrointestinal: Denies abdominal pain, diarrhea, nausea or vomiting Genitourinary Genitourinary ED: Reports other Details: See history of present illness ; Denies dysuria, hematuria or urinary frequency Musculoskeletal Musculoskeletal: Denies arthralgias or myalgias Integumentary Denies abscess or rash Neurologic Neurologic: Denies headache(s) or weakness Psychiatric Psychiatric: Denies anxiety, depression, suicidal ideation or suicidal thoughts Endocrine Endocrinology: Denies polydipsia, polyphagia or polyuria Allergic/Immunologic Allergic/Immunologic ED: Denies mouth swelling, tongue swelling or urticaria EXAM Physical Exam Const Vital Signs: 09/11/24 12:15 09/11/24 12:40 09/11/24 13:12 Temperature 96.8 F L Temperature Source Temporal Pulse Rate 96 73 76 Pulse Rate [Lying] Pulse Rate [Sitting (for 1 minute prior to obtaining)] Pulse Rate [Standing (for 1 minute prior to obtaining)] Respiratory Rate 14 25 H 18 Blood Pressure 90/61 94/51 L 94/55 L Blood Pressure [Lying] Blood Pressure [Sitting (for 1 minute prior to obtaining)] Blood Pressure [Standing (for 1 minute prior to obtaining)] Blood Pressure Mean 70 65 68 Blood Pressure Mean [Lying] Blood Pressure Mean [Sitting (for 1 minute prior to obtaining)] Blood Pressure Mean [Standing (for 1 minute prior to obtaining)] Pulse Ox 100 100 100 Oxygen Delivery Method Room Air Room Air Room Air 09/11/24 14:00 09/11/24 15:00 09/11/24 15:15 Temperature Temperature Source Pulse Rate 91 86 Pulse Rate [Lying] 88 Pulse Rate [Sitting (for 1 minute prior to obtaining)] 96 Pulse Rate [Standing (for 1 minute prior to obtaining)] 118 H Respiratory Rate 19 H 12 Blood Pressure 98/58 L 82/71 L Blood Pressure [Lying] 93/59 L Blood Pressure [Sitting (for 1 minute prior to obtaining)] 82/71 L Blood Pressure [Standing (for 1 minute prior to obtaining)] 52/42 L Blood Pressure Mean 71 75 Blood Pressure Mean [Lying] 70 Blood Pressure Mean [Sitting (for 1 minute prior to obtaining)] 74 Blood Pressure Mean [Standing (for 1 minute prior to obtaining)] 45 Pulse Ox 99 100 Oxygen Delivery Method Room Air 09/11/24 16:00 Temperature Temperature Source Pulse Rate 81 Pulse Rate [Lying] Pulse Rate [Sitting (for 1 minute prior to obtaining)] Pulse Rate [Standing (for 1 minute prior to obtaining)] Respiratory Rate 16 Blood Pressure 102/61 Blood Pressure [Lying] Blood Pressure [Sitting (for 1 minute prior to obtaining)] Blood Pressure [Standing (for 1 minute prior to obtaining)] Blood Pressure Mean 74 Blood Pressure Mean [Lying] Blood Pressure Mean [Sitting (for 1 minute prior to obtaining)] Blood Pressure Mean [Standing (for 1 minute prior to obtaining)] Pulse Ox 100 Oxygen Delivery Method Positive well nourished and well developed General Appearance ED: well developed and NAD HEENT Reports normocephalic, head/scalp atraumatic and moist mucous membranes Eyes PERRL and EOMs intact bilaterally Neck no lymphadenopathy, supple and no JVD Resp normal respiratory effort and clear to auscultation bilaterally Cardio regular rate, regular rhythm and no murmurs GI normal to inspection, nondistended, normoactive bowel sounds and non-tender Palpation: soft Narrative: Pelvic examination performed in presence of female nurse Ranjana. There was dark clotted blood around the vagina. Intravaginally there was a dark clot with an apparent blood vessel from it. This was removed revealing an attached placenta. No bright red blood was noted. Dark clotted and unclotted blood was noted throughout the vagina. Mild suprapubic tenderness. Back/Spine no CVA tenderness and normal ROM Extremity normal to inspection General Extremety ED: Negative for edema General Extremity: Negative for edema Neuro oriented x3 and CN's II-XII intact bilaterally Sensorium / Orientation: alert Motor Exam: strength 5/5 throughout Psych mental status grossly normal Mood & Affect: Negative for depressed or tearful Skin no rashes or lesions noted and no wounds MDM MDM MDM Narrative Medical decision making narrative: Differential diagnosis includes but not limited to incomplete miscarriage acute blood loss anemia/hypovolemia retained products of conception I spoke initially with on-call obstetrics Dr. Sharma. She is asking for a formal ultrasound. White count elevated 18.1 hemoglobin 12.3 platelet count of 257. BMP with a glucose of 154 normal liver enzymes. She has a positive. Formal pelvic ultrasound was obtained. This was reviewed with Dr. Sharma The patient is significantly orthostatic after the 1 L of normal saline. Repeat H&H returned at 10.3 and she received a total of 3 L normal saline. We are going to repeat her orthostatics. If she is still orthostatics we will discuss with Dr. Sharma observation stay. Per nursing when they placed a pure wick after her orthostatics bleeding had significantly diminished. History & Record Review Discussion w/independent historian: Patient and Significant other Additional record(s) reviewed:: Prior outpatient record and Prior labs Lab Data Attestation: I reviewed the patient's lab results. Labs: Laboratory Results - last 24 hr 09/11/24 09/11/24 12:35 15:25 WBC 18.1 H RBC 3.95 L Hgb 12.3 10.3 L Hct 35.6 L 30.4 L MCV 90.1 MCH 31.1 MCHC 34.6 RDW Std Deviation 42.3 RDW Coeff of Alexsandra 12.9 Plt Count 257 MPV 9.3 Immature Gran % (Auto) 0.500 Neut % (Auto) 76.7 H Lymph % (Auto) 17.0 L Hardy % (Auto) 5.3 Eos % (Auto) 0.2 Baso % (Auto) 0.3 Absolute Neuts (auto) 13.9 H Absolute Lymphs (auto) 3.08 Nucleated RBC % 0 Sodium 136 Potassium 3.1 L Chloride 106 Carbon Dioxide 23.0 Anion Gap 7 BUN 11 Creatinine 0.80 Estim Creat Clear Calc 98.01 Est GFR (MDRD) Af Amer 110 Est GFR (MDRD) Non-Af 91 BUN/Creatinine Ratio 13.8 Glucose 154 H Calcium 9.3 Total Bilirubin 0.40 AST 12 L ALT 17 Alkaline Phosphatase 49 Total Protein 7.1 Albumin 3.1 L Globulin 4.0 Albumin/Globulin Ratio 0.8 L Blood Type A POSITIVE Antibody Screen NEGATIVE Radiography Diagnostic Testing: Clinical Impression(s) from Imaging Studies Pelvis Ultrasound 09/11/24 13:49 IMPRESSION: 1. No evidence of intrauterine . 2. Abnormal thickening of the endometrium could be due to blood clots. Retained presence of is less likely. Follow-up examination is recommended. Electronically Signed: Jimbo Freitas MD at 15:20 EST , Management Discussion w/another healthcare provider: Paralegal Secretary (SUPPLIER DEVELOPMENT MANAGER (Dr. Sharma)) Discharge Plan Triage Chief Complaint: Vag Bleeding ED Provider: Alphonso Milton Dx/Rx/DC Orders Prescriptions: No Action Fa 60 mg iron-1 mg Tablet 1 tab PO DAILY Primary Care Provider: Ozzie Worthy Referrals: Ozzie Worthy, DO [Primary Care Provider] - Print Language: Frisian
--- NOTE | 2024-09-11 13:49 | US_ITS ---
INDICATION: miscarriage -- at 16 weeks EXAMINATION: Ultrasound US Pelvis Non-OB Complete TECHNIQUE: Transabdominal and transvaginal pelvic ultrasound was performed. Grayscale, spectral waveform, and color flow Doppler evaluation of the adnexa. COMPARISON: No relevant prior comparison study available FINDINGS: UTERUS: Anteverted. The uterus measures 11 x 8.3 x 6.3 cm. There is no uterine mass. The endometrial stripe measures 3 cm in AP diameter which is thickened for a premenopausal patient. RIGHT OVARY: 2.4 x 1.6 x 2.9 cm. Non-enlarged, normal echogenicity. There is normal arterial inflow and venous outflow present in the right ovary. LEFT OVARY: 3.7 x 2 x 2.5 cm. Non-enlarged, normal echogenicity. There is normal arterial inflow and venous outflow present in the left ovary. FREE FLUID: None. US/Pelvic (Non ) IMPRESSION: 1. No evidence of intrauterine . 2. Abnormal thickening of the endometrium could be due to blood clots. Retained presence of is less likely. Follow-up examination is recommended. Electronically Signed: Jimbo Freitas MD at 15:20 EST ,
[2024-09-11 13:53] LABS: ALB/GLOB Ratio 0.8 RATIO (0.9-2.4); AST(SGOT) 12 U/L (15-37); Alanine Aminotransfer ALT/SGPT 17 U/L (13-56); Albumin, Serum 3.1 g/dL (3.2-5.0); Alkaline Phosphatase 49 U/L (45-117); Anion Gap 7 (5-15); BUN 11 mg/dL (7-18); BUN/Creat Ratio 13.8 RATIO (10-20); Calcium,Total 9.3 mg/dL (8.5-10.1); Chloride 106 mmol/L (98-107); EST Glomerular Filtration Rate 91 mL/min (>60); Est Glom Filt Rate - Afr Amer 110 mL/min (>60); Estimated Creatinine Clearance 98.01 ml/min; Glucose 154 mg/dL (74-106); Potassium 3.1 mmol/L (3.5-5.1); Protein, Total 7.1 g/dL (6.4-8.2); Sodium Level 136 mmol/L (136-145)
[2024-09-11] MEDS: 0.9% Normal Saline (1000mL) 1,000 ML 200 ML IV (13:59)
[2024-09-11] MEDS: 0.9% Normal Saline (1000mL) 1,000 ML 999 ML IV ×2 (14:30→15:34)
--- NOTE | 2024-09-11 15:29 | CM.ED ---
Social Work SW introduced self, explained role with [facility] and reason for visit. Patient was laying in bed with at beside. Patient stated that she started bleeding yesterday, and felt that she has time to process before she came to the ER today. Patient stated that she had also had a miscarriage in October but she was not as far along as she was this time. Patient stated it is harder this time because she had told her 2 year old that there would be a baby coming. SW offered additional resources for counseling or support, patient declined stating she had her family, her and her cassi as support. Supportive listening and emotional support provided. Marcy Ardon, CHIEF SUBSTATION OPERATOR, STAGE DIRECTOR
[2024-09-11 16:02] LABS: Hematocrit 30.4 % (37-47); Hemoglobin 10.3 g/dL (12.0-15.0)
[2024-09-11 17:30] LABS: Hematocrit 29.9 % (37-47); Hemoglobin 10.2 g/dL (12.0-15.0)
== END 2024-09-11 19:13 | disposition home or self-care (01) ==
PROVIDERS: Emergency Provider Emergency Medicine; PCP Family Medicine; Visit Provider Emergency Medicine
DX: O20.9 Hemorrhage in early pregnancy, unspecified (principal); Z3A.16 16 weeks gestation of pregnancy
CPT/HCPCS: 76856; 80053; 85014; 85018; 85025; 86850; 86900; 86901; 96360; 96361; 99284; A4216